=== PATIENT | female | born 1975 | race African-American/Black ===

== ENCOUNTER 2017-08-02 04:25 | Emergency (ER) | payer OTHER ==
[~2017-08-02] VITALS: Ht 172.7 cm; Wt 113.4 kg
[~2017-08-02 04:25] MED LIST: NORCO 5-325 TA1 EACH PO; TOPROL XL25 MG PO
[2017-08-02 04:30] VITALS: BP 191/117
[2017-08-02] MEDS ORDERED: CARVEDILOL6.25 MG PO (04:35)
[2017-08-02] MEDS ORDERED: PREDNISONE 10 M10 MG PO (05:05)
== END 2017-08-02 05:26 | disposition home or self-care (01) ==
LOC: ER 04:25
DX: R21 Rash and other nonspecific skin eruption (principal); I10 Essential (primary) hypertension; F10.99 Alcohol use, unspecified with unspecified alcohol-induced disorder

== ENCOUNTER 2019-05-23 22:01 | Inpatient (IN) | payer BC, OTHER ==
[~2019-05-23] VITALS: Ht 172.7 cm; Wt 110.9 kg
[~2019-05-23 22:01] MED LIST changes: +CARVEDILOL12.5 MG PO; +PREDNISONE 10 M10 MG PO
[2019-05-23 22:08] VITALS: BP 166/134
[2019-05-23 22:32] LABS: BASOPHILS 1.3 % (0.0-2.0); EOSINOPHILS 2.2 % (0.0-3.0); LYMPHOCYTES 31.7 % (24.0-44.0); MCH 31.1 pg (26.0-34.0); MCHC 33.4 g/dL (28.0-37.0); MONOCYTES 7.2 % (1.0-8.0); PLATELET COUNT 283 thou/uL (150-400); POLYS 57.6 % (36.0-66.0); RBC 4.83 mil/uL (4.20-5.00); RDW 13.8 % (10.5-14.5); WBC 8.8 thou/uL (4.0-11.0)
[2019-05-23] MEDS ORDERED: COZAAR 25 MG TA25 M1 PO (22:34)
--- NOTE | 2019-05-23 22:36 | NUR ---
FATHER STATES HE WANTS NO MEDICATIONS GIVEN TO PT WITHOUT HIS APPROVAL PT IS ALERT AND ABLE TO MAKE HER OWN DECISIONS.
[2019-05-23 22:41] LABS: ANION GAP 11 mmol/L (7-16); BUN 11 mg/dL (7-18); CALCIUM 8.9 mg/dL (8.5-10.1); CHLORIDE 102 mmol/L (98-107); CO2 25 mmol/L (21-32); GLUCOSE 117 mg/dL (74-106); POTASSIUM 3.8 mmol/L (3.5-5.1); SODIUM 138 mmol/L (136-145)
[2019-05-23 22:52] LABS: ALBUMIN 3.4 g/dL (3.4-5.0); MAGNESIUM 1.8 mg/dL (1.8-2.4); SGOT 18 U/L (15-37); SGPT 22 U/L (30-65); TOTAL BILIRUBIN 0.4 mg/dL (<0.1-1.0); TOTAL PROTEIN 7.4 g/dL (6.4-8.2); TROPONIN-I <0.06 ng/mL (<0.06)
[2019-05-23 23:12] VITALS: BP 178/139
[2019-05-23 23:29] VITALS: BP 188/126
[2019-05-24 00:06] VITALS: BP 154/93
[2019-05-24 04:45] VITALS: BP 126/82
[2019-05-24 05:09] LABS: HEMATOCRIT 46.4 % (37.0-47.0); HEMOGLOBIN 15.2 gm/dL (12.0-15.0); MCH 30.8 pg (26.0-34.0); MCHC 32.9 g/dL (28.0-37.0); MCV 93.6 fL (80.0-100.0); RBC 4.96 mil/uL (4.20-5.00); RDW 13.6 % (10.5-14.5); WBC 7.4 thou/uL (4.0-11.0)
--- NOTE | 2019-05-24 05:24 | NUR ---
PATIENT ARRIVED TO THE FLOOR FROM THE ED. PATIENT VERY ANXIOUS ABOUT ADMISSION AND IS CURRENTLY IN A-FIB WITH RVR. INCREASED THE CARDIZEM DRIP AND NOTIFIED DR. OMALLEY OF PATIENT BEING IN A-FIB WITH HR IN 170'S AND RECEIVED ORDER FOR DIGOXIN. PATIENT CONVERTED TO NSR DURING THIS SHIFT. HOURLY ROUNDING AND ASSESSMENTS COMPLETED. PATIENT PROGRESSING TOWARD GOAL.
[2019-05-24 05:31] LABS: ANION GAP 13 mmol/L (7-16); BUN 10 mg/dL (7-18); CHLORIDE 102 mmol/L (98-107); CO2 23 mmol/L (21-32); CREATININE 0.8 mg/dL (0.6-1.0); GLUCOSE 105 mg/dL (74-106); POTASSIUM 3.7 mmol/L (3.5-5.1); SODIUM 138 mmol/L (136-145); TROPONIN-I <0.06 ng/mL (<0.06)
[2019-05-24 07:08] VITALS: BP 154/105
[2019-05-24 07:26] VITALS: BP 116/72
[2019-05-24] MEDS ORDERED: ASPIR 8181 MG PO (11:02)
[2019-05-24] MEDS ORDERED: CARVEDILOL25 MG PO (11:02)
[2019-05-24 11:19] VITALS: BP 116/72
--- NOTE | 2019-05-24 11:58 | 2DMMODE ---
[facility] [address] [place] [address] 2 D/M-MODE ECHOCARDIOGRAM Name: HERMINIO LEWIS Room #: 210-P [facility]#: [id number] ������������� Admission: 05/23/19 ������������� Attend Phys: Amadou Bonilla, Discharge: ��� 05/24/19 ������������� ��� Date of : 71 Date of Service: 05/24/19 1158 �� Report #: [id number] �������� ��������������������������������������������[id number] THIS REPORT FOR: //name// APPROVED REPORT Study performed: 05/24/2019 09:47:20 EXAM: Comprehensive 2D, Doppler, and color-flow Echocardiogram Patient Location: In-Patient Room #: 210 Status: routine BSA: 2.15 HR: 78 bpm BP: 130/8 mmHg Rhythm: NSR Other Information Study Quality: Technically Limited Risk Factors: Cardiac Risk Factors: HTN, Smoking, Obesity Indications Atrial Fibrillation Echo Enhancing Agent Indication: Endocardial border delineation Agent(s) / Amount(s) Used: Optison 2 cc 2D Dimensions RVDd: 30.94 mm IVSd: 13.88 (7-11mm) LVOT Diam: 21.57 (18-24mm) LVDd: 31.86 mm PWd: 14.57 (7-11mm) Ascending Ao: 23.47 (22-36mm) LVDs: 20.31 (25-40mm) Left Atrium: 32.37 (27-40mm) Aortic Root: 27.28 mm Volumes Left Atrial Volume (Systole) Single Plane 4CH: 27.59 mL Single Plane 2CH: 27.90 mL Aortic Valve AoV Peak Estrada.: 1.24 m/s AO Peak Gr.: 6.20 mmHg [facility] [address] [place] [address] 2 D/M-MODE ECHOCARDIOGRAM Name: HERMINIO LEWIS Room #: 210-P [facility]#: [id number] ������������� Admission: 05/23/19 ������������� Attend Phys: Amadou Bonilla, Discharge: ��� 05/24/19 ������������� ��� Date of : 71 Date of Service: 05/24/19 1158 �� Report #: [id number] �������� ��������������������������������������������[id number] AO Mean Gr.: 2.70 mmHg AO V2 Mean: 0.75 m/s AO V2 VTI: 21.74 cm Mitral Valve E/A Ratio: 0.7 MV Decel. Time: 351.20 ms MV E Max Estrada.: 0.54 m/s MV A Estrada.: 0.83 m/s MV PHT: 101.85 ms Pulmonary Valve PV Peak Estrada.: 0.82 m/s PV Peak Gr.: 2.68 mmHg Pulmonary Vein P Vein S: 0.46 m/s P Vein A: 0.28 m/s P Vein D: 0.34 m/s P Vein A Dur.: 114.2 msec P Vein S/D Ratio: 1.35 Left Ventricle The left ventricle is normal size. There is normal LV segmental wall motion. Mild concentric left ventricular hypertrophy. The left ventricular systolic function is normal. The left ventricular ejection fraction is within the normal range 55-60% 55-60% Right Ventricle The right ventricle is normal size. The right ventricular systolic function is normal. Atria The left atrium size is normal. The interatrial septum is intact with no evidence for an atrial septal defect. The right atrium size is normal. Aortic Valve The aortic valve is normal in structure. No aortic regurgitation is present. Mitral Valve The mitral valve is normal in structure. There is no mitral valve regurgitation noted. Tricuspid Valve The tricuspid valve is normal in structure. There is no tricuspid valve regurgitation noted. [address] [address] 2 D/M-MODE ECHOCARDIOGRAM Name: HERMINIO LEWIS Room #: 210-P [facility] ..#: [id number] ������������� Admission: 05/23/19 ������������� Attend Phys: Amadou Bonilla, Discharge: ��� 05/24/19 ������������� ��� Date of : 71 Date of Service: 05/24/19 1158 �� Report #: [id number] �������� ��������������������������������������������[id number] Pulmonic Valve There is no pulmonic valvular regurgitation. Great Vessels The aortic root is normal in size. IVC is normal in size and collapses >50% with inspiration. Pericardium There is no pericardial effusion. Critical Notification Critical Value: No <Conclusion> The left ventricle is normal size. Mild concentric left ventricular hypertrophy. The left ventricular systolic function is normal. The left ventricular ejection fraction is within the normal range 55-60% The right ventricle is normal size. The left atrium size is normal. The aortic valve is normal in structure. There is no mitral valve regurgitation noted. The aortic root is normal in size. There is no pericardial effusion. The interatrial septum is intact with no evidence for an atrial septal defect. ��������������������������������������������� <ELECTRONICALLY SIGNED> ���������������������������������������� By: Raffy Negron MD, FACC ��������������������������������������������� 05/24/19 1158 1158 1158 Raffy Negron MD, FACC /INF
[2019-05-25 02:09] LABS: GLYCOHEMOGLOBIN (HGB A1C) 5.5 % (4.8-5.6)
--- NOTE | 2019-05-26 07:56 | EKG ---
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[place] : 1975 Requested By: Savage Andino Order Number: [id number] MD: Abelardo Nunez Measurements Intervals [place] Rate: 164 P: PA: QRS: 0 QRSD: 76 T: 238 QT: 244 QTc: 403 Interpretive Statements Atrial fibrillation Ventricular premature complex Nonspecific repol abnormality, diffuse leads Compared to ECG 11/27/2012 08:30:03 ST and T wave abnormality is more pronounced Sinus rhythm no longer present Electronically Signed On 05-26-2019 7:56:14 CDT by Abelardo Nunez [email or web address] ��������������������������������������������� <ELECTRONICALLY SIGNED> ���������������������������������������� By: Abelardo Nunez MD, FACC ��������������������������������������������� 05/26/19 0756 2216 Abelardo Nunez MD, [facility] /EPI
== END 2019-05-24 11:57 | disposition home or self-care (01) | DRG 310 ==
LOC: ER 22:01 → EROBS 22:45 → 2N 05-24 00:28
PROVIDERS: Emergency Medicine; Nurse Practitioner; ADMIT Internal Medicine
DX: I48.91 Unspecified atrial fibrillation (principal); E66.9 Obesity, unspecified; R94.6 Abnormal results of thyroid function studies; F12.10 Cannabis abuse, uncomplicated; F10.10 Alcohol abuse, uncomplicated; I50.9 Heart failure, unspecified; I11.0 Hypertensive heart disease with heart failure; R73.03 Prediabetes; Z68.37 Body mass index [BMI] 37.0-37.9, adult; Z79.899 Other long term (current) drug therapy; Z82.49 Family history of ischemic heart disease and other diseases of the circulatory system; Z80.8 Family history of malignant neoplasm of other organs or systems; Z71.3 Dietary counseling and surveillance